=== PATIENT | male | born 1950 | race Caucasian/White ===

== ENCOUNTER 2019-02-05 21:23 | Outpatient (REF) | payer OTHER, SELFPAY ==
[2019-02-05 22:17] LABS: Hemoglobin A1C 7.9 % (4.5-6.2)
[2019-02-05 22:27] LABS: ALT 33 U/L (12-78); AST 19 U/L (15-37); Alkaline Phosphatase 83 U/L (46-116); Anion Gap 5.4 mmol/L (3-11); BUN 20 mg/dL (7-18); Bilirubin, Total 0.5 mg/dL (0.2-1.0); CO2 32.6 mmol/L (21.0-32.0); CREATININE 0.87 mg/dL (0.70-1.30); Calcium 9.4 mg/dL (8.5-10.1); Chloride 104 mmol/L (98-107); Cholesterol 195 mg/dL (50-200); Glucose 130 mg/dL (70-100); HDL Cholesterol 84 mg/dL (40-60); LDL CHOLESTEROL 90 mg/dL (<100); Potassium 4.5 mmol/L (3.5-5.1); Sodium 142 mmol/L (136-145); Total Protein 7.1 g/dL (6.4-8.2); Triglyceride 70 mg/dL (30-150)
== END 2019-02-05 21:43 ==
LOC: NCHCN 21:23
PROVIDERS: PCP Nurse Practitioner Family; Visit Provider Family Medicine
DX: Z00.00 Encounter for general adult medical examination without abnormal findings (principal); E11.9 Type 2 diabetes mellitus without complications
CPT/HCPCS: 80053; 80061; 83721; 83036

== ENCOUNTER 2020-06-03 22:25 | Outpatient (REF) | payer OTHER, SELFPAY ==
[2020-06-03 21:43] LABS: HCT 37.9 % (40.0-50.0); HGB 12.1 g/dL (13.5-17.5); Mean Corp. HGB Concentration 31.9 g/dL (32.0-36.0); Mean Corpuscular Hemoglobin 28.2 pg (27.0-33.0); Mean Corpuscular Volume 88.3 fL (80-95); Mean Platelet Volume 9.8 fL (8.0-11.0); Platelet Count 366 x1000/uL (130-400); RBC 4.29 m/cumm (4.50-6.00); RBC Distribution Width 13.6 % (11.8-14.1); White Blood Cell Count 8.45 k/cumm (4.4-10.8)
[2020-06-03 22:17] LABS: ALT 102 U/L (16-63); AST 36 U/L (15-37); Albumin 3.4 g/dL (3.4-5.0); Alkaline Phosphatase 159 U/L (46-116); Anion Gap 8.8 mmol/L (3-11); BUN 23 mg/dL (7-18); Bilirubin, Total 0.5 mg/dL (0.2-1.0); CO2 30.2 mmol/L (21.0-32.0); CREATININE 0.91 mg/dL (0.70-1.30); Calcium 9.2 mg/dL (8.5-10.1); Chloride 103 mmol/L (98-107); Glucose 154 mg/dL (74-106); Potassium 4.1 mmol/L (3.5-5.1); Sodium 142 mmol/L (136-145); Total Protein 6.4 g/dL (6.4-8.2)
== END 2020-06-03 22:45 ==
LOC: NCHCN 22:25
PROVIDERS: PCP Nurse Practitioner Family; Visit Provider Nurse Practitioner Family
DX: N28.89 Other specified disorders of kidney and ureter (principal); E11.9 Type 2 diabetes mellitus without complications
CPT/HCPCS: 80053; 85027

== ENCOUNTER 2020-06-09 18:21 | Outpatient (REF) | payer OTHER, SELFPAY ==
[2020-06-09 20:28] LABS: ALT 47 U/L (16-63); AST 21 U/L (15-37); Albumin 3.9 g/dL (3.4-5.0); Alkaline Phosphatase 154 U/L (46-116); Anion Gap 9.5 mmol/L (3-11); BUN 24 mg/dL (7-18); Bilirubin, Total 0.3 mg/dL (0.2-1.0); CO2 28.5 mmol/L (21.0-32.0); CREATININE 1.05 mg/dL (0.70-1.30); Calcium 9.5 mg/dL (8.5-10.1); Chloride 101 mmol/L (98-107); Glucose 195 mg/dL (74-106); Potassium 4.4 mmol/L (3.5-5.1); Sodium 139 mmol/L (136-145)
== END 2020-06-09 18:41 ==
LOC: NCHCN 18:21
PROVIDERS: PCP Nurse Practitioner Family; Visit Provider Nurse Practitioner Family
DX: I50.9 Heart failure, unspecified (principal)
CPT/HCPCS: 80053

== ENCOUNTER 2020-08-03 13:55 | Outpatient (REF) | payer OTHER, SELFPAY ==
[2020-08-03 22:21] LABS: Hemoglobin A1C 6.5 % (<5.7)
[2020-08-03 22:22] LABS: ALT 39 U/L (16-63); AST 26 U/L (15-37); Alkaline Phosphatase 104 U/L (46-116); Bilirubin, Total 0.4 mg/dL (0.2-1.0); Calculated LDL 93 mg/dL (<100); Cholesterol 197 mg/dL (<200); HDL Cholesterol 79 mg/dL (40-60); Total Protein 6.9 g/dL (6.4-8.2); Triglyceride 127 mg/dL (<150)
== END 2020-08-03 14:15 ==
LOC: NCHCN 13:55
PROVIDERS: PCP Nurse Practitioner Family; Visit Provider Family Medicine
DX: Z00.00 Encounter for general adult medical examination without abnormal findings (principal); E11.9 Type 2 diabetes mellitus without complications; R74.8 Abnormal levels of other serum enzymes
CPT/HCPCS: 80061; 80076; 83036

== ENCOUNTER 2021-01-20 12:00 | Outpatient (REF) | payer BC, SELFPAY ==
[2021-01-20 14:25] LABS: ALT 45 U/L (16-63); AST 28 U/L (15-37); Albumin 3.9 g/dL (3.4-5.0); Alkaline Phosphatase 110 U/L (46-116); Anion Gap 9.6 mmol/L (3-11); BUN 18 mg/dL (7-18); Bilirubin, Total 0.5 mg/dL (0.2-1.0); CO2 28.4 mmol/L (21.0-32.0); CREATININE 1.1 mg/dL (0.70-1.30); Calcium 9.4 mg/dL (8.5-10.1); Chloride 102 mmol/L (98-107); Glucose 171 mg/dL (74-106); Potassium 4.4 mmol/L (3.5-5.1); Sodium 140 mmol/L (136-145); Total Protein 7.1 g/dL (6.4-8.2)
== END 2021-01-20 12:01 | disposition home or self-care (01) ==
LOC: NCHCN 12:00
PROVIDERS: PCP Family Medicine; Visit Provider Family Medicine
DX: R74.8 Abnormal levels of other serum enzymes (principal)
CPT/HCPCS: 80053

== ENCOUNTER 2021-08-02 08:42 | Outpatient (REF) | payer BC, SELFPAY ==
[2021-08-02 14:16] LABS: ALT 65 U/L (16-63); AST 33 U/L (15-37); Alkaline Phosphatase 105 U/L (46-116); Anion Gap 8.5 mmol/L (3-11); BUN 17 mg/dL (7-18); Bilirubin, Total 0.7 mg/dL (0.2-1.0); CO2 31.5 mmol/L (21.0-32.0); CREATININE 1.1 mg/dL (0.70-1.30); Calcium 9.3 mg/dL (8.5-10.1); Calculated LDL 108 mg/dL (<100); Chloride 104 mmol/L (98-107); Cholesterol 208 mg/dL (<200); Glucose 122 mg/dL (74-106); HDL Cholesterol 86 mg/dL (40-60); Potassium 4.2 mmol/L (3.5-5.1); Sodium 144 mmol/L (136-145); Total Protein 7.2 g/dL (6.4-8.2); Triglyceride 74 mg/dL (<150)
== END 2021-08-02 08:43 | disposition home or self-care (01) ==
LOC: NCHCN 08:42
PROVIDERS: PCP Family Medicine; Visit Provider Family Medicine
DX: E11.9 Type 2 diabetes mellitus without complications (principal); Z00.00 Encounter for general adult medical examination without abnormal findings
CPT/HCPCS: 80053; 80061; 83036

== ENCOUNTER 2021-08-05 16:00 | Outpatient (REF) | payer BC, SELFPAY ==
[2021-08-05 21:29] LABS: COMMENT (LAB VIEW ONLY) 71.29 mg/dL; Microalb ug/mg Crea 14.7 ug/mg Cr
== END 2021-08-05 16:01 | disposition home or self-care (01) ==
LOC: NCHCN 16:00
PROVIDERS: PCP Family Medicine; Visit Provider Family Medicine
DX: E11.9 Type 2 diabetes mellitus without complications (principal)
CPT/HCPCS: 82043; 82570

== ENCOUNTER 2021-09-29 09:40 | Outpatient (REF) | payer BC, SELFPAY ==
[2021-09-29 17:01] LABS: Anion Gap 9.4 mmol/L (3-11); BUN 19 mg/dL (7-18); CO2 28.6 mmol/L (21.0-32.0); CREATININE 0.9 mg/dL (0.70-1.30); Calcium 9.3 mg/dL (8.5-10.1); Chloride 106 mmol/L (98-107); Glucose 106 mg/dL (74-106); Potassium 4.5 mmol/L (3.5-5.1); Sodium 144 mmol/L (136-145)
[2021-09-30 10:29] LABS: HIV-1/2 Ag & Ab Screen Negative (Negative)
[2021-09-30 10:41] LABS: Hepatitis C Ab w Rflx HCV PCR Negative (Negative)
== END 2021-09-29 09:41 | disposition home or self-care (01) ==
LOC: NCHCN 09:40
PROVIDERS: PCP Family Medicine; Visit Provider Nurse Practitioner Family
DX: I10 Essential (primary) hypertension (principal); Z11.4 Encounter for screening for human immunodeficiency virus [HIV]; Z11.59 Encounter for screening for other viral diseases
CPT/HCPCS: 80048; 86803; 87389

== ENCOUNTER 2022-05-05 17:08 | Outpatient (REF) | payer BC, SELFPAY ==
[2022-05-05 21:05] LABS: Anion Gap 9.5 mmol/L (3-11); BUN 19 mg/dL (7-18); CO2 27.5 mmol/L (21.0-32.0); Calcium 9.5 mg/dL (8.5-10.1); Chloride 102 mmol/L (98-107); Glucose 156 mg/dL (74-106); Potassium 4.5 mmol/L (3.5-5.1); Sodium 139 mmol/L (136-145)
[2022-05-08 10:35] LABS: HIV-1/2 Ag & Ab Screen Negative (Negative)
== END 2022-05-05 17:09 | disposition home or self-care (01) ==
LOC: NCHCN 17:08
PROVIDERS: PCP Family Medicine; Visit Provider Family Medicine
DX: I10 Essential (primary) hypertension (principal); C64.9 Malignant neoplasm of unspecified kidney, except renal pelvis; Z11.3 Encounter for screening for infections with a predominantly sexual mode of transmission; Z11.4 Encounter for screening for human immunodeficiency virus [HIV]
CPT/HCPCS: 80048; 87389

== ENCOUNTER 2022-05-11 15:49 | Outpatient (REF) | payer BC, SELFPAY ==
[2022-05-12 09:37] LABS: HBs Antibody, Quant <3.1 mIU/mL (See Note); Hepatitis B Surface Ab Negative (See Note)
[2022-05-12 09:51] LABS: Hepatitis B Surface Ag Negative (Negative)
== END 2022-05-11 15:50 | disposition home or self-care (01) ==
LOC: NCHCN 15:49
PROVIDERS: PCP Family Medicine; Visit Provider Family Medicine
DX: Z72.89 Other problems related to lifestyle (principal); Z11.3 Encounter for screening for infections with a predominantly sexual mode of transmission
CPT/HCPCS: 86706; 87340

== ENCOUNTER 2022-08-09 09:28 | Outpatient (REF) | payer BC, SELFPAY ==
[2022-08-09 17:08] LABS: Albumin 4.6 g/dL (3.4-5.0); Anion Gap 7.9 mmol/L (3-11); BUN 21 mg/dL (7-18); CO2 30.1 mmol/L (21.0-32.0); CREATININE 1.2 mg/dL (0.70-1.30); Calcium 9.6 mg/dL (8.5-10.1); Chloride 99 mmol/L (98-107); Estimated GFR 65.06 (mL/min/1.73m2); Glucose 121 mg/dL (74-106); PHOSPHORUS 3.4 mg/dL (2.6-4.7); Sodium 137 mmol/L (136-145)
[2022-08-10 09:16] LABS: HIV-1/2 Ag & Ab Screen Negative (Negative)
== END 2022-08-09 09:29 | disposition home or self-care (01) ==
LOC: NCHCN 09:28
PROVIDERS: PCP Family Medicine; Visit Provider Family Medicine
DX: Z72.89 Other problems related to lifestyle (principal); Z79.899 Other long term (current) drug therapy
CPT/HCPCS: 80069; 87389

== ENCOUNTER 2022-11-23 12:45 | Outpatient (REF) | payer BC, SELFPAY ==
[2022-11-23 18:21] LABS: COMMENT (LAB VIEW ONLY) 18.31 mg/dL; Microalb ug/mg Crea 15.3 ug/mg Cr
== END 2022-11-23 12:46 | disposition home or self-care (01) ==
LOC: NCHCN 12:45
PROVIDERS: PCP Family Medicine; Visit Provider Family Medicine
DX: E11.9 Type 2 diabetes mellitus without complications (principal)
CPT/HCPCS: 82043; 82570

== ENCOUNTER 2023-02-09 14:57 | Outpatient (REF) | payer BC, SELFPAY ==
[2023-02-09 16:48] LABS: Anion Gap 6.6 mmol/L (3-11); BUN 18 mg/dL (7-18); CO2 30.4 mmol/L (21.0-32.0); CREATININE 1.1 mg/dL (0.70-1.30); Calcium 9.3 mg/dL (8.5-10.1); Chloride 102 mmol/L (98-107); Estimated GFR 71.77 (mL/min/1.73m2); Glucose 118 mg/dL (74-106); Potassium 4.3 mmol/L (3.5-5.1); Sodium 139 mmol/L (136-145)
[2023-02-12 12:44] LABS: HIV-1/2 Ag & Ab Screen Negative (Negative)
== END 2023-02-09 14:58 | disposition home or self-care (01) ==
LOC: NCHCN 14:57
PROVIDERS: PCP Family Medicine; Visit Provider Family Medicine
DX: Z72.51 High risk heterosexual behavior (principal); Z11.4 Encounter for screening for human immunodeficiency virus [HIV]; Z79.899 Other long term (current) drug therapy
CPT/HCPCS: 80048; 87389

== ENCOUNTER 2023-05-14 13:00 | Outpatient (REF) | payer BC, SELFPAY ==
[2023-05-14 15:22] LABS: CREATININE 1.1 mg/dL (0.70-1.30); Estimated GFR 71.77 (mL/min/1.73m2)
[2023-05-15 14:48] LABS: HIV-1/2 Ag & Ab Screen Negative (Negative)
== END 2023-05-14 13:01 | disposition home or self-care (01) ==
LOC: NCHCN 13:00
PROVIDERS: PCP Family Medicine; Visit Provider Family Medicine
DX: Z72.89 Other problems related to lifestyle (principal); Z79.899 Other long term (current) drug therapy
CPT/HCPCS: 87389; 82565

== ENCOUNTER 2023-08-09 16:40 | Outpatient (REF) | payer BC, SELFPAY ==
[2023-08-09 21:14] LABS: CREATININE 1.1 mg/dL (0.70-1.30); Estimated GFR 71.77 (mL/min/1.73m2)
[2023-08-11 10:42] LABS: HIV-1/2 Ag & Ab Screen Negative (Negative)
[2023-08-13 09:13] LABS: Hepatitis C Ab w Rflx HCV PCR Negative (Negative)
[2023-08-13 09:45] LABS: Syphilis Serology (RPR) Negative (Negative)
== END 2023-08-09 16:41 | disposition home or self-care (01) ==
LOC: NCHCN 16:40
PROVIDERS: PCP Family Medicine; Visit Provider Family Medicine
DX: Z72.89 Other problems related to lifestyle (principal); Z79.899 Other long term (current) drug therapy; Z11.4 Encounter for screening for human immunodeficiency virus [HIV]; Z11.3 Encounter for screening for infections with a predominantly sexual mode of transmission; I10 Essential (primary) hypertension; Z72.51 High risk heterosexual behavior; C64.9 Malignant neoplasm of unspecified kidney, except renal pelvis
CPT/HCPCS: 86803; 87389; 82565; 86592

== ENCOUNTER 2024-01-17 16:40 | Outpatient (REF) | payer BC, SELFPAY ==
[2024-01-17 21:21] LABS: COMMENT (LAB VIEW ONLY) 95.87 mg/dL; Microalb ug/mg Crea 19.4 ug/mg Cr
== END 2024-01-17 16:41 | disposition home or self-care (01) ==
LOC: NCHCN 16:40
PROVIDERS: PCP Family Medicine; Visit Provider Family Medicine
DX: E11.9 Type 2 diabetes mellitus without complications (principal)
CPT/HCPCS: 82043; 82570

== ENCOUNTER 2024-05-22 16:01 | Outpatient (REF) | payer BC, SELFPAY ==
[2024-05-22 19:40] LABS: Hemoglobin A1C 7.6 % (<5.7)
[2024-05-25 10:00] LABS: HIV-1/2 Ag & Ab Screen Negative (Negative)
== END 2024-05-22 16:02 | disposition home or self-care (01) ==
LOC: NCHCN 16:01
PROVIDERS: PCP Family Medicine; Visit Provider Family Medicine
DX: Z11.3 Encounter for screening for infections with a predominantly sexual mode of transmission (principal); E11.9 Type 2 diabetes mellitus without complications
CPT/HCPCS: 87389; 83036

== ENCOUNTER 2025-02-10 13:56 | Outpatient (REF) | payer BC, SELFPAY ==
[2025-02-11 09:50] LABS: HIV-1/2 Ag & Ab Screen Negative (Negative)
== END 2025-02-10 13:57 | disposition home or self-care (01) ==
LOC: NCHCN 13:56
PROVIDERS: PCP Family Medicine; Visit Provider Family Medicine
DX: Z11.4 Encounter for screening for human immunodeficiency virus [HIV] (principal)
CPT/HCPCS: 87389

== ENCOUNTER 2025-02-17 13:14 | Outpatient (REF) | payer BC, SELFPAY ==
[2025-02-17 15:00] LABS: COMMENT (LAB VIEW ONLY) 16.61 mg/dL; Microalb ug/mg Crea 38.5 ug/mg Cr
== END 2025-02-17 13:15 | disposition home or self-care (01) ==
LOC: NCHCN 13:14
PROVIDERS: PCP Family Medicine; Visit Provider Family Medicine
DX: E11.9 Type 2 diabetes mellitus without complications (principal)
CPT/HCPCS: 82043; 82570

== ENCOUNTER 2025-05-27 13:53 | Outpatient (REF) | payer OTHER, SELFPAY ==
[2025-05-27 17:19] LABS: ALT 25 U/L (16-63); AST 22 U/L (15-37); Albumin 4.0 g/dL (3.4-5.0); Alkaline Phosphatase 104 U/L (46-116); Anion Gap 10.2 mmol/L (3-11); BUN 15 mg/dL (7-18); Bilirubin, Total 0.6 mg/dL (0.2-1.0); CO2 26.8 mmol/L (21.0-32.0); Calcium 9.4 mg/dL (8.5-10.1); Chloride 104 mmol/L (98-107); Estimated GFR 79.47 (mL/min/1.73m2); Glucose 118 mg/dL (74-106); Potassium 4.5 mmol/L (3.5-5.1); Sodium 141 mmol/L (136-145); Total Protein 7.0 g/dL (6.4-8.2)
[2025-05-27 17:25] LABS: Hemoglobin A1C 6.2 % (<5.7)
[2025-05-29 11:23] LABS: HIV-1/2 Ag & Ab Screen Negative (Negative)
== END 2025-05-27 13:54 | disposition home or self-care (01) ==
LOC: NCHCN 13:53
PROVIDERS: PCP Family Medicine; Visit Provider Family Medicine
DX: I10 Essential (primary) hypertension (principal); E11.9 Type 2 diabetes mellitus without complications
CPT/HCPCS: 80053; 87389; 83036

== ENCOUNTER 2025-08-26 14:46 | Outpatient (REF) | payer OTHER, SELFPAY ==
[2025-08-27 18:17] LABS: HIV-1/2 Ag & Ab Screen Negative (Negative)
== END 2025-08-26 14:47 | disposition home or self-care (01) ==
LOC: NCHCN 14:46
PROVIDERS: PCP Family Medicine; Visit Provider Family Medicine
DX: R50.9 Fever, unspecified (principal)
CPT/HCPCS: 87389